=== PATIENT | male | born 2000 | race African-American/Black ===

== ENCOUNTER 2024-11-25 02:48 | Emergency (ER) | payer BC ==
[~2024-11-25] VITALS: Ht 177.8 cm; Wt 65.9 kg
[2024-11-25 02:55] VITALS: O2SAT 100
[2024-11-25 03:05] VITALS: BP 131/79; PULSE 69; RESP 13; TEMP 37; O2SAT 100
[2024-11-25] MEDS: KETOROLAC 15MG/ML VIAL IM ONE (04:00)
[2024-11-25] MEDS ORDERED: NAPR-1176 MT (05:19)
[2024-11-25] MEDS ORDERED: LIDO700A15 TP (05:19)
== END 2024-11-25 07:53 | disposition home or self-care (01) ==
LOC: ER 02:59
DX: M54.9 Dorsalgia, unspecified (principal)
CPT/HCPCS: 99283; J1885